=== PATIENT | male | born 1935 | race Caucasian/White ===

== ENCOUNTER 2016-12-30 11:50 | Outpatient (CLI) | payer MEDICARE, OTHER ==
[2016-12-30 13:01] LABS: #Basophils 0.1 thou/uL (0.0-0.2); #Eosinphils 0.2 thou/uL (0.0-0.7); #Lymphocytes 1.1 thou/uL (1.20-3.40); #Monocytes 0.5 thou/uL (0.11-0.59); #Neutrophils 4.6 thou/uL (1.40-6.50); %Lymphocytes 17.5 % (21.0-51.0); %Monocytes 7.4 % (0.0-10.0); Mean Platelet Volume 9.8 fL (7.4-10.4); Red Blood Cell (RBC) Count 4.52 mill/uL (4.70-6.10); White Blood Cell (WBC) Count 6.5 thou/uL (4.8-10.8)
[2016-12-30 13:18] LABS: ALT (SGPT) 18 U/L (0-55); AST (SGOT) 24 U/L (5-34); Alkaline Phosphatase 129 U/L (40-150); Anion Gap 17 mmol/L (10-20); BUN (Urea Nitrogen) 36 mg/dL (8.4-25.7); Bilirubin, Direct 0.2 mg/dL (0.1-0.3); Bilirubin, Total 0.5 mg/dL (0.2-1.2); Calc. Creatinine Clearance 0 mL/min (70-130); Calcium 9.3 mg/dL (7.8-10.44); Carbon Dioxide 23 mmol/L (23-31); Chloride 106 mmol/L (98-107); Estimated GFR-MDRD 36; LDL Cholesterol, Calculated 84 mg/dL; Protein, Total 6.9 g/dL (5.8-8.1)
[2016-12-30 13:22] LABS: Hemoglobin A1c 6.2 % (4.0-6.0)
== END 2016-12-30 11:51 | disposition home or self-care (01) ==
LOC: NAVSJIPCSP 11:50
PROVIDERS: ATTEND Family Medicine
DX: E11.9 Type 2 diabetes mellitus without complications (principal); I10 Essential (primary) hypertension; E78.00 Pure hypercholesterolemia, unspecified; I25.10 Atherosclerotic heart disease of native coronary artery without angina pectoris; E03.9 Hypothyroidism, unspecified; G25.81 Restless legs syndrome; G25.3 Myoclonus; M10.9 Gout, unspecified; Z79.899 Other long term (current) drug therapy
CPT/HCPCS: 36415; 80048; 80061; 80076; 83036; 84443; 85025

== ENCOUNTER 2017-05-04 08:59 | Outpatient (CLI) | payer MEDICARE, OTHER ==
[2017-05-04 12:48] LABS: #Basophils 0.1 thou/uL (0.0-0.2); #Eosinphils 0.2 thou/uL (0.0-0.7); #Lymphocytes 1.3 thou/uL (1.20-3.40); #Monocytes 0.5 thou/uL (0.11-0.59); #Neutrophils 4.3 thou/uL (1.40-6.50); %Basophils 0.9 % (0.0-1.0); %Eosinophils 2.8 % (0.0-10.0); %Lymphocytes 20.7 % (21.0-51.0); %Monocytes 7.6 % (0.0-10.0); Hemoglobin 12.7 g/dL (14.0-18.0); Mean Corpuscular HGB CONC 31.2 g/dL (32.0-36.0); Mean Corpuscular Hemoglobin 29.8 pg (27.0-31.0); Mean Corpuscular Volume 95.5 fl (80.0-94.0); Mean Platelet Volume 9.3 fL (7.4-10.4); Platelet Count 131 thou/uL (130-400); RBC Distribution Width 14.4 % (11.5-14.5); Red Blood Cell (RBC) Count 4.24 mill/uL (4.70-6.10); White Blood Cell (WBC) Count 6.4 thou/uL (4.8-10.8)
[2017-05-04 12:51] LABS: ALT (SGPT) 12 U/L (8-55); AST (SGOT) 18 U/L (5-34); Albumin 4.3 g/dL (3.4-4.8); Alkaline Phosphatase 118 U/L (40-150); Anion Gap 18 mmol/L (10-20); BUN (Urea Nitrogen) 33 mg/dL (8.4-25.7); Bilirubin, Direct 0.2 mg/dL (0.1-0.3); Bilirubin, Total 0.6 mg/dL (0.2-1.2); Calc. Creatinine Clearance 0 mL/min (70-130); Calcium 9.1 mg/dL (7.8-10.44); Carbon Dioxide 23 mmol/L (23-31); Cardiac Risk 4.6 (Less than 4.5); Chloride 105 mmol/L (98-107); Cholesterol 143 mg/dl (< 200 Desired); Estimated GFR-MDRD 40; Glucose 104 mg/dL (83-110); HDL Cholesterol 31 mg/dL (>60 Neg Risk); LDL Cholesterol, Calculated 83 mg/dL; Potassium 4.4 mmol/L (3.5-5.1); Protein, Total 6.7 g/dL (5.8-8.1); Sodium 142 mmol/L (136-145); Triglycerides 145 mg/dL (Less than 150)
== END 2017-05-04 09:00 | disposition home or self-care (01) ==
LOC: NAVSJIPCSP 08:59
PROVIDERS: ATTEND Family Medicine
DX: E78.00 Pure hypercholesterolemia, unspecified (principal); I10 Essential (primary) hypertension; E11.9 Type 2 diabetes mellitus without complications; I25.10 Atherosclerotic heart disease of native coronary artery without angina pectoris; E03.9 Hypothyroidism, unspecified; G25.81 Restless legs syndrome; G25.3 Myoclonus; M10.9 Gout, unspecified; Z79.899 Other long term (current) drug therapy
CPT/HCPCS: 36415; 80048; 80061; 80076; 83036; 84443; 85025

== ENCOUNTER 2019-06-13 10:12 | Emergency (ER) | payer MEDICARE, OTHER ==
[2019-06-13 11:24] LABS: #Basophils 0.1 thou/uL (0.0-0.2); #Lymphocytes 1.2 thou/uL (1.20-3.40); #Monocytes 0.6 thou/uL (0.11-0.59); %Basophils 0.9 % (0.0-1.0); %Eosinophils 0.2 % (0.0-10.0); %Lymphocytes 8.8 % (21.0-51.0); %Monocytes 4.1 % (0.0-10.0); Hemoglobin 8.9 g/dL (14.0-18.0); Mean Corpuscular HGB CONC 30.8 g/dL (32.0-36.0); Mean Corpuscular Hemoglobin 27.5 pg (27.0-31.0); Mean Corpuscular Volume 89.3 fL (78.0-98.0); Mean Platelet Volume 8.1 fL (7.4-10.4); Platelet Count 198 thou/uL (130-400); RBC Distribution Width 15.7 % (11.5-14.5); Red Blood Cell (RBC) Count 3.25 mill/uL (4.70-6.10); White Blood Cell (WBC) Count 13.9 thou/uL (4.8-10.8)
[2019-06-13 11:28] LABS: Bilirubin Negative (Negative); Blood, Urine Negative (Negative); Clarity Clear (Clear); Glucose, Urine (Dipstick) Negative (Negative); Leukocyte Negative (Negative); Nitrite Negative (Negative); Protein, Urine (Dipstick) Negative (Neg-Trace)
[2019-06-13 11:30] LABS: ALT (SGPT) 10 U/L (8-55); AST (SGOT) 18 U/L (5-34); Albumin 3.6 g/dL (3.4-4.8); Alkaline Phosphatase 126 U/L (40-150); Anion Gap 16 mmol/L (10-20); BUN (Urea Nitrogen) 48 mg/dL (8.4-25.7); Bilirubin, Total 0.7 mg/dL (0.2-1.2); Calc. Creatinine Clearance 0 mL/min (70-130); Calcium 9.2 mg/dL (7.8-10.44); Carbon Dioxide 23 mmol/L (23-31); Chloride 100 mmol/L (98-107); Estimated GFR-MDRD 22; Globulin 2.9 g/dL (2.4-3.5); Glucose 155 mg/dL (83-110); Potassium 4.8 mmol/L (3.5-5.1); Protein, Total 6.5 g/dL (5.8-8.1); Sodium 134 mmol/L (136-145)
[2019-06-13] MEDS ORDERED: Sodium Chloride 0.9% 500 ML ONE (11:41)
[2019-06-13] MEDS ORDERED: Sodium Chloride 0.9% 100 ML ONE ×2 (11:41→11:42)
[2019-06-13] MEDS ORDERED: cefTRIAXone\\ROCEPHIN 1 GM VIAL ONE (11:41)
[2019-06-13] MEDS ORDERED: Piperacillin/Tazobactam 3.375 GM VIAL ONE (11:42)
--- NOTE | 2019-06-13 12:23 | ULT ---
EXAM: RIGHT LOWER EXTREMITY DOPPLER VENOUS ULTRASOUND PROVIDED CLINICAL HISTORY: History of right greater saphenous vein harvesting with redness and swelling in the right lower extre mity TECHNIQUE: Grayscale and color Doppler sonography with spectral analysis was performed of the right common femor al, femoral, popliteal, posterior tibial, greater saphenous and profunda femoral veins. FINDINGS: There is normal compression, flow and augmentation seen within the deep venous structures o f the right lower extremity. Small amount of thrombus is seen within the proximal right greater saphenous vein just distal to the greater saphenous vein femoral vein junction. There is a 3.5 x 2.9 cm nonvascular collection within the subcutaneous tissues of the distal medial thigh. IMPRESSION: No sonographic evidence for right lower extremity deep venous thrombosis. Small amount of thrombus seen within the proximal greater saphenous vein just distal to the greater s aphenous vein, femoral junction. 3.5 x 2.9 cm fluid collection within the subcutaneous tissues of the medial distal right thigh. Findi ngs may reflect hematoma or abscess. Custodial Supervisor contacted Dr. Matute concerning the findings at the time of the study.
== END 2019-06-13 12:35 | disposition short-term general hospital (02) ==
LOC: NAV ERS 10:12
DX: L03.115 Cellulitis of right lower limb (principal); I12.0 Hypertensive chronic kidney disease with stage 5 chronic kidney disease or end stage renal disease; N18.6 End stage renal disease; D64.9 Anemia, unspecified; E11.22 Type 2 diabetes mellitus with diabetic chronic kidney disease; I95.9 Hypotension, unspecified; D72.829 Elevated white blood cell count, unspecified; E03.9 Hypothyroidism, unspecified; Z87.891 Personal history of nicotine dependence; Z79.899 Other long term (current) drug therapy
CPT/HCPCS: 80053; 81003; 83605; 85025; 87040; 87086; 96365; 96375; J0696; J2543; J3490; J7050

== ENCOUNTER 2020-04-30 08:32 | Emergency (ER) | payer MEDICARE, OTHER ==
[2020-04-30] MEDS ORDERED: HYDROcodone/Acetaminophen 5/325 mg Tablet ONE (10:38)
[2020-04-30] MEDS ORDERED: Morphine 2 MG/ML SYRINGE ONE (11:01)
--- NOTE | 2020-04-30 12:06 | CT ---
CT CERVICAL SPINE: Date: 04/30/2020 Axial tomograms obtained with multiplanar reconstruction without contrast. INDICATION: Neck pain. FINDINGS: There are moderately severe degenerative changes of the cervical spine. Degenerative disc changes see n at all levels with vacuum phenomenon at several levels. Loss of disc space is most pronounced at th e C4-5, C5-6, and C6-7 levels. There is mild anterior wedging at C5 and C6 which is chronic. Prominen t anterior osteophytes at these levels with large bridging osteophytes anteriorly at C5-6 and C6-7. There is an anterolisthesis at C4 on C5 measured at approximately 4.0 mm. There is a mild anterolisth esis at C5-6 measured at approximately 3.0 mm. No evidence of acute fracture. Prominent facet hypertrophy at all levels. At C3-4, there is bilateral foraminal stenosis, more severe on the right due to facet and uncinate hy pertrophy. Mild effacement of the anterior subarachnoid space. C4-5: Effacement of the anterior subarachnoid space. Bilateral foraminal stenosis. C5-6: Bilateral foraminal stenosis. Effacement of the anterior subarachnoid space due to spondylosis . C6-7: Posterior spondylosis abuts the anterior cord. Bilateral foraminal stenosis. IMPRESSION: Prominent degenerative changes of the cervical spine. Anterolisthesis at C4-5 with degenerative disc changes at multiple levels as described. Foraminal stenosis at multiple levels as described above. POS: CAROLANN
== END 2020-04-30 11:26 | disposition home or self-care (01) ==
LOC: NAV ERS 08:32
DX: M47.812 Spondylosis without myelopathy or radiculopathy, cervical region (principal); E11.22 Type 2 diabetes mellitus with diabetic chronic kidney disease; E11.51 Type 2 diabetes mellitus with diabetic peripheral angiopathy without gangrene; N18.6 End stage renal disease; I12.0 Hypertensive chronic kidney disease with stage 5 chronic kidney disease or end stage renal disease; I25.10 Atherosclerotic heart disease of native coronary artery without angina pectoris; E78.5 Hyperlipidemia, unspecified; E78.00 Pure hypercholesterolemia, unspecified; M10.9 Gout, unspecified; E03.9 Hypothyroidism, unspecified; Z79.899 Other long term (current) drug therapy; I25.2 Old myocardial infarction; Z79.4 Long term (current) use of insulin; Z79.82 Long term (current) use of aspirin; Z79.52 Long term (current) use of systemic steroids; G25.81 Restless legs syndrome
CPT/HCPCS: 72125; 96372; J2270

== ENCOUNTER 2020-05-07 16:10 | Inpatient (IN) | payer MEDICARE, OTHER ==
[2020-05-07] MEDS ORDERED: Nitroglycerin 0.4 MG TAB (25 Tab Bottle) SL PRN (17:52)
[2020-05-07] MEDS ORDERED: Triamcinolone 0.1% Cream 15 GM TUBE TOP PRN (17:52)
[2020-05-07] MEDS ORDERED: traMADol HCl 50 MG TAB PO PRN (17:52)
[2020-05-07] MEDS ORDERED: Bisacodyl 5 MG TAB PO PRN (18:08)
[2020-05-07] MEDS ORDERED: Senokot S 8.6-50 MG TAB PO PRN (18:08)
[2020-05-07] MEDS ORDERED: Dextrose 50% Abboject 50 ML SYRINGE SLOW IVP PRN (18:08)
[2020-05-07] MEDS ORDERED: Ondansetron ODT 4 MG TAB PO PRN (18:08)
[2020-05-07] MEDS ORDERED: Loperamide HCl 2 MG CAP PO PRN ×2 (18:08)
[2020-05-07] MEDS ORDERED: CEFTAROLINE 600 MG IVPB SCH (21:00)
[2020-05-07] MEDS: Aspirin 81 mg Enteric Coated Tablet PO SCH (21:27)
[2020-05-07] MEDS: HumaLOG 300 UNITS/3 ML VIAL SC PRN (21:27)
[2020-05-07] MEDS: Pramipexole Di-HCl 1 MG TAB PO SCH (21:48)
[2020-05-07] MEDS: Ceftaroline 600 MG in Sodium Chloride 0.9% 100 ML IVPB SCH (21:58)
[2020-05-07] MEDS: Vancomycin HCl 750 MG in Sodium Chloride 0.9% 250 ML 250 ML IVPB SCH (23:09)
[2020-05-08] MEDS: Vancomycin HCl 500 MG in Sodium Chloride 0.9% 100 ML IVPB SCH ×2 (00:17→23:36)
[2020-05-08] MEDS: Levothyroxine Sodium 75 MCG TAB PO SCH (05:24)
[2020-05-08 06:00] LABS: #Lymphocytes 0.5 thou/uL (1.20-3.40); #Monocytes 0.2 thou/uL (0.11-0.59); #Neutrophils 5.9 thou/uL (1.40-6.50); %Basophils 0.5 % (0.0-1.0); %Eosinophils 0.1 % (0.0-10.0); %Lymphocytes 7.9 % (21.0-51.0); %Monocytes 2.6 % (0.0-10.0); %Neutrophils 88.9 % (42.0-75.0); Hemoglobin 8.2 g/dL (14.0-18.0); Large Platelets SLIGHT; MDiff Complete? YES; Mean Corpuscular HGB CONC 30.2 g/dL (32.0-36.0); Mean Corpuscular Hemoglobin 25.9 pg (27.0-31.0); Mean Corpuscular Volume 85.8 fL (78.0-98.0); Mean Platelet Volume 11.8 fL (7.4-10.4); Microcytosis SLIGHT = 6-15 cells (100X) (0-5/hpf); Ovalocytes SLIGHT = 2-5 cells (100X) (0-1/hpf); Platelet Count 112 thou/uL (130-400); Platelet Morphology Comment Appears Decreased; Polychromasia MODERATE = 3-4 cells (100X) (0-2/hpf); RBC Distribution Width 18.7 % (11.5-14.5); Red Blood Cell (RBC) Count 3.17 mill/uL (4.70-6.10); White Blood Cell (WBC) Count 6.7 thou/uL (4.8-10.8)
[2020-05-08 06:01] LABS: ALT (SGPT) 21 U/L (8-55); AST (SGOT) 34 U/L (5-34); Albumin 2.2 g/dL (3.4-4.8); Alkaline Phosphatase 146 U/L (40-110); Anion Gap 12 mmol/L (10-20); BUN (Urea Nitrogen) 41 mg/dL (8.4-25.7); Bilirubin, Total 0.6 mg/dL (0.2-1.2); Calc. Creatinine Clearance 48 mL/min (70-130); Carbon Dioxide 22 mmol/L (23-31); Chloride 105 mmol/L (98-107); Estimated GFR-MDRD 44; Globulin 2.8 g/dL (2.4-3.5); Glucose 109 mg/dL (83-110); Potassium 3.8 mmol/L (3.5-5.1); Sodium 135 mmol/L (136-145)
--- NOTE | 2020-05-08 07:39 | HP ---
HISTORY OF PRESENT ILLNESS: Mr. Ramirez is a well-developed, well-nourished, very pleasant 85-year-old white male, who has been a patient of mine for 30+ years. Unfortunately, he has a recent medical history of melanoma, hypertension, hyperlipidemia, and diabetes type 2. He presented to the emergency room at [facility] with severe neck pain just below the base of the skull, mainly on the left side. This started the previous Tuesday, was going on for about 5 days. He was evaluated, given a shot of morphine and some Tylenol No.3's and was sent home. The next day, it became even worse and he told the EMS that the morphine did not help and the Tylenol No.3 did not help. He was unable to move very well because of intense pain and he called EMS, was transported to [facility] in [place]. There, he had a CT angiogram, which revealed mildly dilated thoracic aorta and noted to have spinal cord compression from C2 from anterior epidural abscess that went all way down to C3 and up to the base of the skull. He was started on vancomycin and cefepime and admitted to the hospital, seen by Dr. Day, by Dr. Arguello, and the [facility] residents. Eventually, he is stabilized and now is transferred here for a full 6 weeks which end on June 26 of vancomycin and ceftaroline [address] every [address] Day requested a weekly CBC, C-reactive protein, comp met, and vancomycin trough level. He is also requested to see Dr. Day in 3 to 4 weeks. PAST MEDICAL HISTORY: 1. Mr. Ramirez reveals he has diabetes type 2. 2. Thyroid dysfunction. 3. Coronary artery disease with an DC in 2002. 4. Recent melanoma. 5. Diabetic neuropathy. 6. 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 7. Bradycardia. 8. Hypertension. 9. 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 10. Stage 3 chronic kidney disease. 11. Long-term use of insulin. 12. 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 13. Melanoma of the right thigh. 14. Sepsis with MRSA. 15. Thrombocytopenia. 16. Elevated troponin. 17. Recent pacemaker approximately 3 weeks ago. 18. Pain management. 19. Generalized weakness. PAST SURGICAL HISTORY: 1. In 1951, tonsillectomy. 2. Vasectomy. 3. In 1969, gastrectomy. 4. In 1969, hemorrhoidectomy. 5. In 1977, herniorrhaphy. 6. Knee arthroscopy. 7. Colonoscopy and panendoscopy with removal of a large villous adenoma with severe dysplasia in 2001 and 2002. 8. In 2002, stent placement by Dr. Amilcar Downs. 9. In 2008, right cataract surgery by Dr. Gasca. 10. In 2008, left cataract surgery by Dr. Gasca. 11. In 2010, right herniorrhaphy. 12. In 2010, RCA stent by Dr. Gorman. 13. In 2016, left foot surgery with pinning of the second and third toes by Dr. Arredondo. 14. In August 2016, cardiac cath with stenting by Dr. Gorman. 15. In March 2019, coronary artery bypass graft x3 by Dr. Emerson Beatty. 16. On October 17, 2019, melanoma excision of the right thigh. 17. In March 2020, pacemaker placement by Dr. Antonio Gorman. FAMILY HISTORY: Reveals the patient's father at age 93. The patient's mother at age 37 from tuberculosis. The patient's older sister is 89, has rheumatoid arthritis. The patient's second sister is 87, has diabetes and thyroid issues. The patient has one son and two daughters, who are healthy. SOCIAL HISTORY: 1. Reveals the patient stopped smoking in 1972 and 2 pack per day history of smoking for many years. 2. The patient rarely has any alcohol. 3. The patient denies drugs. 4. The patient lives with his spouse. 5. The patient is retired from the [employer] and also retired from [employer]. 6. The patient has no travel outside the [place] recently. ALLERGIES: REVEALS THE PATIENT IS ALLERGIC TO CIPRO, WHICH CAUSES ITCHING. PRESENT MEDICATIONS: Revealed the patient is presently on the followin. Tylenol 650 mg q.4 hours p.r.n. headache, fever, pain. 2. Allopurinol 100 mg daily. 3. Alogliptin 25 mg daily. 4. Ecotrin 81 mg daily. 5. Atorvastatin 40 mg daily. 6. Dulcolax 10 mg p.o. p.r.n. 7. Rocaltrol 0.25 mcg daily. 8. Ceftaroline fosamil 400 mg b.i.d. IV piggyback, which is an antibiotic. 9. Vancomycin 1 g IV q.24 hours, which is an antibiotic. 10. Plavix 75 mg daily. 11. Lasix 40 mg daily. 12. Lantus 14 units subcu each morning. 13. Lispro Humalog mild sliding scale before each meal. 14. Theragran-M multivitamin daily. 15. Levothyroxine 75 mcg daily. 16. Nitrostat 0.4 mg sublingual q.5 minutes p.r.n. chest pain. 17. Zofran 4mg p.r.n. nausea and vomiting. 18. Potassium chloride 10 mEq daily. 19. Mirapex 1 mg p.o. b.i.d. 20. Prednisone 20 mg daily. 21. Senokot-S two tablets p.o. b.i.d. p.r.n. constipation. 22. Sodium chloride flush q.12 hours and p.r.n. 23. Spironolactone 25 mg daily. 24. Ultram 100 mg q.4 hours p.r.n. pain 4 to 6. 25. Kenalog topically q.p.m. p.r.n. itching. REVIEW OF SYSTEMS: The patient states he feels poorly and very weak, but is not having fever, chills, or night sweats at this time. The patient has lost some weight recently because he has been in the hospital. His appetite has been poor, even though he has been on prednisone 20 mg daily. Ophthalmologically, the patient denies any change in his vision. ENT: The patient denies any ear pain, change in hearing, nasal congestion, or rhinorrhea. CARDIOVASCULAR: The patient denies chest pain, palpitations, irregular heartbeat, shortness of breath, or orthopnea. PULMONARY: The patient denies shortness of breath, dyspnea on exertion, cough, hemoptysis, or wheezing. GASTROINTESTINAL: The patient denies nausea, vomiting, diarrhea, constipation, dysphagia, heartburn, or indigestion. MUSCULOSKELETAL: The patient states his neck pain is much improved and he has pain in his infected right toe. NEUROLOGIC: The patient denies seizures or headache, but does admit to right leg numbness and weakness, which started when he was admitted to the hospital. PSYCHIATRIC: The patient has been somewhat depressed because he has been so ill and unable to get better. ENDOCRINE: The patient denies polyuria, polydipsia, or polyphagia. PHYSICAL EXAMINATION: GENERAL: This is a well-developed, well-nourished, very pleasant 85-year-old white male, who is concerned because he has been so sick and thought when he went to [facility], he was dying. HEENT: Reveals normocephalic and nontraumatic cranium. Pupils equally round and reactive. Extraocular movements intact. Nose and throat are slightly dry. NECK: Supple without masses, nodes, or bruits. CHEST: Clear to auscultation. No rales. No rhonchi. No wheezes are heard. Pacemaker in left upper chest wall, continues to have some bruising of the ribs on that side. HEART: Reveals a regular rate and rhythm. No murmurs, gallops, or rubs are noted. RESPIRATORY: Reveals no cough, cold, congestion, rales, or rhonchi. GI: Reveals normal bowel sounds in all 4 quadrants. No rebound or guarding is noted. No masses are noted. EXTREMITIES: Reveal 1 to 2+ edema bilaterally. There is infected epidural abscess, most likely from the patient's right first metatarsal infection. ASSESSMENT: 1. Sepsis secondary to epidural abscess. 2. 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 Chun. 3. 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 4. Pacemaker followed by Dr. Ritchie and Dr. Gorman. 5. Hypertension. 6. Hyperlipidemia. 7. Diabetes type 2, presently stable, but has been uncontrolled. 8. Melanoma followed by Dr. Bright presently. 9. Idiopathic hepatitis secondary to melanoma medication, presently weaned from 80 mg daily down to [address] Gorman. 10. Hypothyroidism. 11. Pacemaker. 12. Thrombocytopenia. 13. Elevated troponin. 14. Pain management. 15. Generalized weakness. PLAN: 1. The patient will continue the same medications that he presently is on. 2. The patient will continue ceftaroline 400 mg until June 26. 3. The patient will continue vancomycin 1 g daily until June 26. 4. The patient will follow up with Dr. Day in 3 to 4 weeks, which should be basically around May 28. 5. The patient will have a CBC, comprehensive metabolic panel, C-reactive protein, and vancomycin level, and a pre-albumin weekly, which will be sent to Dr. Day. 6. The patient will continue to have a right-sided PICC line for his prolonged antibiotics. 7. Continue to monitor the patient's blood counts for thrombocytopenia and anemia. 8. Continue to monitor the patient's troponin if he develops chest pain. 9. Continue the patient's present medications. 10. Stress ulcer prophylaxis. 11. Decubitus precautions. 12. DVT prophylaxis per Primary Service. 13. Physical therapy and occupational therapy. Job ID: [id number] [facility]
[2020-05-08] MEDS: Alogliptin 25 MG TAB PO SCH (08:39)
[2020-05-08] MEDS: Calcitriol 0.25 MCG CAP PO SCH (08:40)
[2020-05-08] MEDS: Atorvastatin Calcium 20 MG TAB PO SCH (08:40)
[2020-05-08] MEDS: Allopurinol 100 MG TAB PO SCH (08:40)
[2020-05-08] MEDS: Clopidogrel Bisulfate 75 MG TAB PO SCH (08:41)
[2020-05-08] MEDS: Ceftaroline 600 MG in Sodium Chloride 0.9% 100 ML IVPB SCH ×2 (08:41→09:04)
[2020-05-08] MEDS: Multivitamin W/ Minerals 1 TAB PO SCH (08:42)
[2020-05-08] MEDS: Lantus 1000 UNITS/10 ML VIAL SC SCH (08:42)
[2020-05-08] MEDS: Furosemide 40 MG TAB PO SCH (08:42)
[2020-05-08] MEDS: Spironolactone 25 MG TAB PO SCH (08:43)
[2020-05-08] MEDS: Potassium Chloride 10 MEQ TAB PO SCH (08:43)
[2020-05-08] MEDS: Pramipexole Di-HCl 1 MG TAB PO SCH (08:43)
[2020-05-08] MEDS: predniSONE 20 MG TAB PO SCH (08:43)
[2020-05-08] MEDS: Pramipexole Di-HCl 0.25 MG TAB PO SCH ×2 (10:05→21:24)
[2020-05-08] MEDS: HumaLOG 300 UNITS/3 ML VIAL SC PRN (16:42)
--- NOTE | 2020-05-08 21:19 | PRG ---
DATE OF SERVICE: 05/08/2020 SUBJECTIVE: Mr. Ramirez is a very pleasant 85-year-old white male. He presented to the emergency room at [facility] with very severe neck pain just below the base of the skull, mainly on the left side. Taken to the hospital previously and for his neck pain, was given a shot of morphine and some Tylenol No.3. He was sent home and it did not get any better. He told the EMS that the morphine did not help at all and he was re-evaluated and found to have a spinal cord compression from C2 secondary to an anterior epidural abscess that it went down to C2 and all the way up to the base of the skull. He is admitted to [facility] in [place]. He was seen in consultation by Dr. Day and Dr. Arguello and started on vancomycin and cefepime. He eventually is evaluated and stabilized and now has been transferred to [facility] for full 6 weeks of vancomycin and ceftaroline. Dr. Day recommended a weekly CBCs, C-reactive protein, comp met, and vancomycin trough level. The patient states he did well today and walked 230 feet with rolling walker, but he says it was a stretch. His blood work is actually doing fairly well except his creatinine is 1.53. His anemia reveals hemoglobin 8.2 and hematocrit 27.2. PHYSICAL EXAMINATION: GENERAL: This is a well-developed, well-nourished white male, in no apparent distress at this time. VITAL SIGNS: This morning blood pressure was 156/72, pulse 83, respirations 18, and O2 saturation 92% to 93% on room air or 1.5 L. HEENT: Normocephalic and nontraumatic cranium. The pupils are equally round and reactive. Extraocular movements are intact. Nose and throat are slightly dry. NECK: Supple without masses, nodes, or bruits. CHEST: Clear to auscultation. HEART: Reveals a regular rate and rhythm without murmurs, gallops, or rubs. ABDOMEN: Obese, soft, and nontender without organomegaly. Normal bowel sounds are noted. No rebound or guarding is noted. GENITOURINARY: Deferred. EXTREMITIES: Reveal no clubbing or cyanosis. The patient has 1 to 2+ edema bilaterally. SKIN: Cervical neck reveals a posterior epidural abscess. The patient has a right first metatarsal infection. ASSESSMENT: 1. Sepsis secondary to epidural abscess. 2. 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 Chun. 3. 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 4. Pacemaker followed by Dr. Carey and Dr. Gorman. 5. Hypertension. 6. Diabetes type 2. 7. Hyperlipidemia. 8. 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 Bright. 9. Melanoma followed by Dr. Bright. 10. Hypothyroidism. 11. Pacemaker. 12. Thrombocytopenia. 13. Elevated troponin. 14. Pain management. 15. Generalized weakness. PLAN: 1. The patient will continue vancomycin 1 g daily until June 26. 2. The patient will continue ceftaroline 400 mg b.i.d. until June 26. 3. Continue the other medications as needed. 4. Follow up with Dr. Day in 3 to 4 weeks, which should be around May 28. 5. Continue CBC, comp met, C-reactive protein, vancomycin level, and pre-albumin weekly, which will need to be sent to Dr. Day. 6. Continue to monitor the patient's blood counts for thrombocytopenia and anemia. Continue the patient's troponin. If he develops chest pain, continue the patient's present medications. 7. Stress ulcer prophylaxis. 8. Decubitus precautions. 9. DVT prophylaxis. 10. PT and OT. Job ID: [id number]
[2020-05-08] MEDS: Aspirin 81 mg Enteric Coated Tablet PO SCH (21:24)
[2020-05-08] MEDS: Vancomycin HCl 750 MG in Sodium Chloride 0.9% 250 ML 250 ML IVPB SCH (22:27)
[2020-05-09] MEDS: Levothyroxine Sodium 75 MCG TAB PO SCH (05:13)
[2020-05-09] MEDS ORDERED: Calcium Carbonate 500 MG ChewTAB PO PRN (06:51)
[2020-05-09] MEDS: Pramipexole Di-HCl 0.25 MG TAB PO SCH ×2 (08:18→21:03)
[2020-05-09] MEDS: Allopurinol 100 MG TAB PO SCH (08:19)
[2020-05-09] MEDS: Alogliptin 25 MG TAB PO SCH (08:19)
[2020-05-09] MEDS: Famotidine 20 MG TAB PO SCH (08:19)
[2020-05-09] MEDS: predniSONE 20 MG TAB PO SCH (08:20)
[2020-05-09] MEDS: Clopidogrel Bisulfate 75 MG TAB PO SCH (08:20)
[2020-05-09] MEDS: Potassium Chloride 10 MEQ TAB PO SCH (08:20)
[2020-05-09] MEDS: Calcitriol 0.25 MCG CAP PO SCH (08:20)
[2020-05-09] MEDS: Atorvastatin Calcium 20 MG TAB PO SCH (08:20)
[2020-05-09] MEDS: Furosemide 40 MG TAB PO SCH (08:20)
[2020-05-09] MEDS: Spironolactone 25 MG TAB PO SCH (08:20)
[2020-05-09] MEDS: Multivitamin W/ Minerals 1 TAB PO SCH (08:21)
[2020-05-09] MEDS: Lantus 1000 UNITS/10 ML VIAL SC SCH (08:23)
--- NOTE | 2020-05-09 08:44 | PRG ---
DATE OF SERVICE: 05/09/2020 SUBJECTIVE: Mr. Ramirez is a very pleasant 85-year-old white male, who developed very severe neck pain and presented to the emergency room. He was given a shot of morphine, some Tylenol No.3 and sent home. The pain got significantly worse and he was unable to move and so he called EMS and was brought to [facility]. CT scan revealed spinal cord compression from the base of his neck down to C3. He was found to have an epidural abscess. He was admitted to [facility], was seen in consultation by Dr. Day and Dr. Arguello and Dr. Amaro. He was not deemed an operable patient, started on IV antibiotics, stabilized and now has been transferred to [facility] for a full 6 weeks of vancomycin and ceftaroline. Dr. Day recommended weekly CBC, C-reactive protein, comprehensive metabolic panel, and vancomycin trough level. The patient states he had a good night last night except he had some GERD reflux. They gave him some crackers, which made things little bit better. We did discuss putting him on some Pepcid b.i.d. and some Tums p.r.n. PHYSICAL EXAMINATION: VITAL SIGNS: This morning reveal blood pressure was normal, pulse 77 to 91, respirations 20, O2 saturation 93% on room air, and T-max 96.7. GENERAL: This is a well-developed, well-nourished, white male, in no apparent distress at this time. HEENT: Reveals normocephalic and nontraumatic cranium. Pupils are equal, round , and reactive. Extraocular movements are intact. Nose and throat are slightly dry. NECK: Supple without masses, nodes, or bruits. CHEST: Clear to auscultation. HEART: Reveals a regular rate and rhythm without murmurs, gallops, or rubs. ABDOMEN: Obese, soft, nontender without organomegaly. Normal bowel sounds are noted in all 4 quadrants. No rebound or guarding is noted. GENITOURINARY: Deferred. EXTREMITIES: Reveal no clubbing, cyanosis, or edema. The patient continues to have 1 to 2+ edema, that is his baseline. MUSCULOSKELETAL: Cervical/neck reveals no significant tenderness, but he did ask to put his C-collar on this morning because it is a little bit sore. SKIN: He also was noted to have a first metatarsophalangeal joint ulceration, which is chronic. LABORATORY DATA: No labs were done today except for his Accu-Cheks. Accu-Chek this morning was 110. ASSESSMENT: 1. Sepsis secondary to epidural abscess. 2. Epidural abscess, followed by Dr. Day and Dr. Amaro, on IV antibiotics. 3. 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 Chun. 4. Pacemaker, followed by Dr. Carey and Dr. Gorman. 5. Diabetes, type 2. 6. Hypertension. 7. Hyperlipidemia. 8. 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 Bright. 9. Melanoma, followed by Dr. Bright. 10. Hypothyroidism. 11. Pacemaker. 12. Thrombocytopenia. 13. Elevated troponin in the recent past. 14. Pain management. 15. Generalized weakness. PLAN: 1. The patient will continue vancomycin 1 g daily until June 26. 2. The patient will continue ceftaroline 400 mg b.i.d. until June 26. 3. Follow up with Dr. Day in 2 to 3 weeks, should be around May 28. 4. Continue CBC, comp-met, C-reactive protein, vancomycin, and pre-albumin every week and send to Dr. Day. 5. Continue to monitor the patient's blood counts for thrombocytopenia and anemia. 6. Continue to monitor the patient's troponin if he develops any chest pain. 7. Stress ulcer prophylaxis. 8. Decubitus precautions. 9. DVT prophylaxis. 10. Physical therapy and occupational therapy. Job ID: [id number] [facility]
[2020-05-09] MEDS: HumaLOG 300 UNITS/3 ML VIAL SC PRN (18:09)
[2020-05-09] MEDS: Aspirin 81 mg Enteric Coated Tablet PO SCH (21:03)
[2020-05-09] MEDS: Vancomycin HCl 750 MG in Sodium Chloride 0.9% 250 ML 250 ML IVPB SCH (22:22)
[2020-05-09] MEDS: Vancomycin HCl 500 MG in Sodium Chloride 0.9% 100 ML IVPB SCH (23:27)
[2020-05-10] MEDS: Levothyroxine Sodium 75 MCG TAB PO SCH (05:43)
[2020-05-10] MEDS: Clopidogrel Bisulfate 75 MG TAB PO SCH (10:01)
[2020-05-10] MEDS: Alogliptin 25 MG TAB PO SCH (10:01)
[2020-05-10] MEDS: Atorvastatin Calcium 20 MG TAB PO SCH (10:01)
[2020-05-10] MEDS: Allopurinol 100 MG TAB PO SCH (10:01)
[2020-05-10] MEDS: Pramipexole Di-HCl 0.25 MG TAB PO SCH ×2 (10:02→21:40)
[2020-05-10] MEDS: Famotidine 20 MG TAB PO SCH (10:02)
[2020-05-10] MEDS: Furosemide 40 MG TAB PO SCH (10:02)
[2020-05-10] MEDS: Potassium Chloride 10 MEQ TAB PO SCH (10:02)
[2020-05-10] MEDS: Calcitriol 0.25 MCG CAP PO SCH (10:02)
[2020-05-10] MEDS: Multivitamin W/ Minerals 1 TAB PO SCH (10:02)
[2020-05-10] MEDS: Spironolactone 25 MG TAB PO SCH (10:03)
[2020-05-10] MEDS: Acetaminophen 325 MG TAB PO PRN (10:03)
[2020-05-10] MEDS: predniSONE 20 MG TAB PO SCH (10:03)
[2020-05-10] MEDS: Lantus 1000 UNITS/10 ML VIAL SC SCH (10:07)
--- NOTE | 2020-05-10 16:07 | PRG ---
DATE OF SERVICE: 05/10/2020 SUBJECTIVE: Mr. Ramirez is resting in his recliner. He denies any questions or concerns. He is happy with his progress. No family at bedside. OBJECTIVE: VITAL SIGNS: He is afebrile with a T-max of , pulse is 70, respirations 22, oxygen saturation 93% on 3 L, and blood pressure is 151/68. CARDIOVASCULAR SYSTEM: S1 and S2 plus. RESPIRATORY SYSTEM: Normal vesicular breath sounds. ABDOMEN: Soft, nontender. Bowel sounds heard in all quadrants. EXTREMITIES: Without cyanosis or clubbing. He does have just DAVE hose on only the right leg. CENTRAL NERVOUS SYSTEM: Awake and responsive. Generalized weakness, otherwise nonfocal. LABORATORY DATA: Blood sugars are 108, 270, 296, 125, and 97. IMPRESSION: 1. Epidural abscesses, currently on IV antibiotics. 2. Diabetes mellitus, type 2. 3. Hypertension. 4. Dyslipidemia. 5. Hypothyroidism. 6. Deconditioning. PLAN: 1. Continue current medications including antibiotics till June 26. 2. Weekly CBC, CMP, CRP, and sedimentation rate. 3. DVT prophylaxis with PlexiPulses. 4. Decubitus precautions. 5. Stress ulcer prophylaxis. 6. 1800-calorie heart healthy ADA diet. 7. Accu-Cheks with sliding scale coverage. 8. Monitor blood pressure and adjust medications as needed. 9. Continue therapy. 10. Discussed with the patient and nursing in detail and all questions answered. Job ID: [id number]
[2020-05-10 21:23] LABS: Vancomycin, Trough 18.6 ug/mL
[2020-05-10] MEDS: Aspirin 81 mg Enteric Coated Tablet PO SCH (21:40)
[2020-05-10] MEDS: Vancomycin HCl 750 MG in Sodium Chloride 0.9% 250 ML 250 ML IVPB SCH (22:35)
[2020-05-10] MEDS: Vancomycin HCl 500 MG in Sodium Chloride 0.9% 100 ML IVPB SCH (22:35)
[2020-05-11] MEDS: Levothyroxine Sodium 75 MCG TAB PO SCH (05:27)
[2020-05-11] MEDS: Potassium Chloride 10 MEQ TAB PO SCH (09:12)
[2020-05-11] MEDS: Pramipexole Di-HCl 0.25 MG TAB PO SCH ×2 (09:12→20:11)
[2020-05-11] MEDS: Multivitamin W/ Minerals 1 TAB PO SCH (09:12)
[2020-05-11] MEDS: predniSONE 20 MG TAB PO SCH (09:13)
[2020-05-11] MEDS: Spironolactone 25 MG TAB PO SCH (09:13)
[2020-05-11] MEDS: Atorvastatin Calcium 20 MG TAB PO SCH (09:13)
[2020-05-11] MEDS: Clopidogrel Bisulfate 75 MG TAB PO SCH (09:13)
[2020-05-11] MEDS: Calcitriol 0.25 MCG CAP PO SCH (09:13)
[2020-05-11] MEDS: Alogliptin 25 MG TAB PO SCH (09:13)
[2020-05-11] MEDS: Furosemide 40 MG TAB PO SCH (09:13)
[2020-05-11] MEDS: Allopurinol 100 MG TAB PO SCH (09:13)
[2020-05-11] MEDS: Famotidine 20 MG TAB PO SCH (09:13)
[2020-05-11] MEDS: Lantus 1000 UNITS/10 ML VIAL SC SCH (09:21)
[2020-05-11] MEDS ORDERED: Bisacodyl 10 MG SUPP PR PRN (11:19)
--- NOTE | 2020-05-11 12:01 | PRG ---
DATE OF SERVICE: 05/11/2020 SUBJECTIVE: He is complaining of some constipation, otherwise denies any concerns or questions. His spouse is in the room. All questions answered. Pain is controlled. OBJECTIVE: VITAL SIGNS: He is afebrile, heart rate is 80, respirations 20, oxygen saturation 93% on 3 L, and blood pressure 112/55. CARDIOVASCULAR SYSTEM: S1 and S2 plus. RESPIRATORY SYSTEM: Normal vesicular breath sounds. ABDOMEN: Soft and nontender. Bowel sounds heard in all quadrants. EXTREMITIES: Without cyanosis or clubbing. CENTRAL NERVOUS SYSTEM: Grossly nonfocal other than generalized weakness. LABORATORY DATA: Blood sugars are 125, 97, 146, and 244. IMPRESSION: 1. Epidural abscess, on IV antibiotics. 2. Diabetes mellitus, type 2. 3. Hypertension. 4. Dyslipidemia. 5. Hypothyroidism. 6. Deconditioning. 7. Constipation. PLAN: 1. Continue current medications. 2. He does have Senokot p.r.n., advised nursing to give that to him and then we will also order Dulcolax suppository b.i.d. p.r.n. 3. Heart healthy, 1800-calorie ADA diet. 4. Accu-Cheks with sliding scale coverage. 5. Monitor blood pressure and adjust medications as needed. 6. Spinal precaution. 7. Physical therapy. 8. Routine laboratory values. 9. Dr. Edward duff. Job ID: [id number]
[2020-05-11] MEDS: HumaLOG 300 UNITS/3 ML VIAL SC PRN (17:14)
[2020-05-11] MEDS: Aspirin 81 mg Enteric Coated Tablet PO SCH (20:11)
[2020-05-11] MEDS: Acetaminophen 325 MG TAB PO PRN (20:11)
[2020-05-11] MEDS: Vancomycin HCl 750 MG in Sodium Chloride 0.9% 250 ML 250 ML IVPB SCH (21:19)
[2020-05-11] MEDS: Vancomycin HCl 500 MG in Sodium Chloride 0.9% 100 ML IVPB SCH (22:46)
[2020-05-12] MEDS: Levothyroxine Sodium 75 MCG TAB PO SCH (05:34)
[2020-05-12] MEDS: HumaLOG 300 UNITS/3 ML VIAL SC PRN ×2 (05:35→13:10)
[2020-05-12] MEDS: Pramipexole Di-HCl 0.25 MG TAB PO SCH ×2 (08:58→20:14)
[2020-05-12] MEDS: Calcitriol 0.25 MCG CAP PO SCH (08:59)
[2020-05-12] MEDS: Alogliptin 25 MG TAB PO SCH (08:59)
[2020-05-12] MEDS: Atorvastatin Calcium 20 MG TAB PO SCH (08:59)
[2020-05-12] MEDS: Furosemide 40 MG TAB PO SCH (08:59)
[2020-05-12] MEDS: Spironolactone 25 MG TAB PO SCH (08:59)
[2020-05-12] MEDS: Multivitamin W/ Minerals 1 TAB PO SCH (08:59)
[2020-05-12] MEDS: Potassium Chloride 10 MEQ TAB PO SCH (08:59)
[2020-05-12] MEDS: Famotidine 20 MG TAB PO SCH (08:59)
[2020-05-12] MEDS: Clopidogrel Bisulfate 75 MG TAB PO SCH (08:59)
[2020-05-12] MEDS: Allopurinol 100 MG TAB PO SCH (08:59)
[2020-05-12] MEDS: predniSONE 20 MG TAB PO SCH (08:59)
[2020-05-12] MEDS: Lantus 1000 UNITS/10 ML VIAL SC SCH (09:00)
[2020-05-12] MEDS ORDERED: Dextrose 50% Abboject 50 ML SYRINGE SLOW IVP PRN (09:52)
--- NOTE | 2020-05-12 13:37 | PRG ---
DATE OF SERVICE: 05/12/2020 SUBJECTIVE: Mr. Ramirez is a well-developed, well-nourished 85-year-old white male, who has developed very severe neck pain. He presented to the emergency room in [place], was given a shot of morphine and Tylenol and was sent home. His pain over the next 24 hours got significantly worse and he called the ambulance, because he is unable to move. He was brought to [facility], where CT revealed a spinal cord compression, epidural abscess. It went from the back of his neck down to C3. He was found to have an epidural abscess and was admitted to [facility]. He was seen in consultation by Dr. Day, Dr. Arguello, and Dr. Amaro. He was not thought to be operable and was started on IV antibiotics. He has now been stabilized and transferred to [facility] for full 6 weeks of vancomycin and ceftaroline. Dr. Day recommends weekly CBC, C-reactive protein, comprehensive metabolic panel, and vancomycin trough level. The patient states he had a good weekend and is feeling better. His is in the room with him and I did answer all of her and his questions. He had no more complaints of heartburn or indigestion. OBJECTIVE: VITAL SIGNS: Today, reveal blood pressure 117/56, pulse 71 to 76, respirations 18 to 20, O2 saturation 91% to 97% on 2 to 3 L nasal cannula, and T-max 99.6. GENERAL: This is a well-developed, well-nourished, slightly obese white male, in no apparent distress at this time. HEENT: Normocephalic and nontraumatic cranium. Pupils are equally round and reactive. Extraocular movements are intact. Nose and throat are slightly dry. NECK: Supple without masses, nodes, or bruits. CHEST: Clear to auscultation. No rales, no rhonchi, no wheezes are heard. HEART: Reveals a regular rate and rhythm without murmurs, gallops, or rubs. ABDOMEN: Obese, soft, and nontender without organomegaly. Normal bowel sounds are noted in all 4 quadrants. No rebound or guarding is noted. : Deferred. EXTREMITIES: Reveal no clubbing or cyanosis. The patient continues with 1 to 2+ edema at his baseline. MUSCULOSKELETAL: His cervical neck area reveals significant improvement in pain. He wears a C-collar p.r.n. ASSESSMENT: 1. Sepsis secondary to epidural abscess. 2. Epidural abscess followed by Dr. Day, Dr. Amaro, on IV antibiotics until June 26. 3. 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 Chun. 4. Pacemaker followed by Dr. Ritchie and Dr. Gorman. 5. Diabetes type 2. 6. Hypertension. 7. Hyperlipidemia. 8. 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 Bright. 9. Melanoma followed by Dr. Bright. 10. Hypothyroidism. 11. Pacemaker. 12. Thrombocytopenia. 13. Elevated troponin in the recent past. 14. Pain management. 15. Generalized weakness. PLAN: 1. The patient will continue vancomycin and had to be adjusted 1 g daily until June 26. 2. The patient will continue ceftaroline 400 mg b.i.d. until May 27. 3. Follow up with Dr. Day in 2 to 3 weeks, it should be around May 28. 4. Continue CBC, C-reactive protein, vancomycin, pre-albumin every week and send to Dr. Day. 5. Continue to monitor the patient's blood counts for thrombocytopenia and anemia. 6. Continue to monitor the patient's troponin if he develops any chest pain. 7. Stress ulcer prophylaxis. 8. Decubitus precautions. 9. DVT prophylaxis. 10. Physical therapy and occupational therapy. Job ID: [id number]
[2020-05-12] MEDS: Acetaminophen 325 MG TAB PO PRN (20:14)
[2020-05-12] MEDS: Aspirin 81 mg Enteric Coated Tablet PO SCH (20:14)
[2020-05-12] MEDS ORDERED: Furosemide 40 MG/4 ML VIAL SLOW IVP SCH (21:00)
--- NOTE | 2020-05-12 21:12 | RAD ---
EXAM: CHEST ONE VIEW HISTORY: Shortness of breath. COMPARISON: 05/06/2020 FINDINGS: Right-sided PICC line and dual-lead left subclavian pacemaker device remain in place. Median sternoto my wires are again seen. Cardiac silhouette is stable in size. There are increased interstitial opacities seen bilaterally. No other interval change. IMPRESSION: Persistent bilateral interstitial and mild patchy opacities greater in the upper lung zones, intersti tial densities at each lung base have increased. Findings may be related to infectious process. Follow-up to resolution is recommended.
[2020-05-12 21:47] LABS: Vancomycin, Trough 22.4 ug/mL
[2020-05-12] MEDS: Vancomycin HCl 750 MG in Sodium Chloride 0.9% 250 ML 250 ML IVPB SCH (22:14)
[2020-05-12] MEDS ORDERED: Vancomycin HCl 1 GM in Sodium Chloride 0.9% 250 ML 250 ML IVPB SCH (23:00)
[2020-05-13] MEDS ORDERED: Sodium Chloride 0.9% 10 ML ONE (01:36)
[2020-05-13] MEDS: Levothyroxine Sodium 75 MCG TAB PO SCH (05:25)
[2020-05-13] MEDS: HumaLOG 300 UNITS/3 ML VIAL SC PRN ×2 (05:25→13:20)
[2020-05-13 05:35] LABS: #Lymphocytes 0.4 thou/uL (1.20-3.40); #Monocytes 0.1 thou/uL (0.11-0.59); #Neutrophils 5.4 thou/uL (1.40-6.50); %Basophils 0.4 % (0.0-1.0); %Lymphocytes 5.9 % (21.0-51.0); %Monocytes 2.2 % (0.0-10.0); %Neutrophils 91.5 % (42.0-75.0); Hemoglobin 7.7 g/dL (14.0-18.0); Mean Corpuscular HGB CONC 29.9 g/dL (32.0-36.0); Mean Corpuscular Hemoglobin 25.6 pg (27.0-31.0); Mean Corpuscular Volume 85.7 fL (78.0-98.0); Mean Platelet Volume 9.3 fL (7.4-10.4); Platelet Count 186 thou/uL (130-400); RBC Distribution Width 18.1 % (11.5-14.5); Red Blood Cell (RBC) Count 3.01 mill/uL (4.70-6.10); White Blood Cell (WBC) Count 5.9 thou/uL (4.8-10.8)
[2020-05-13 05:46] LABS: Lactic Acid 1.1 mmol/L (0.5-2.2)
[2020-05-13 05:50] LABS: ALT (SGPT) 24 U/L (8-55); AST (SGOT) 74 U/L (5-34); Alkaline Phosphatase 163 U/L (40-110); Anion Gap 15 mmol/L (10-20); BUN (Urea Nitrogen) 41 mg/dL (8.4-25.7); Bilirubin, Total 0.4 mg/dL (0.2-1.2); Calc. Creatinine Clearance 43 mL/min (70-130); Calcium 7.9 mg/dL (7.8-10.44); Carbon Dioxide 19 mmol/L (23-31); Chloride 105 mmol/L (98-107); Estimated GFR-MDRD 38; Globulin 2.9 g/dL (2.4-3.5); Glucose 258 mg/dL (83-110); Potassium 3.6 mmol/L (3.5-5.1); Protein, Total 4.9 g/dL (5.8-8.1); Sodium 135 mmol/L (136-145)
[2020-05-13] MEDS: Clopidogrel Bisulfate 75 MG TAB PO SCH (08:15)
[2020-05-13] MEDS: Pramipexole Di-HCl 0.25 MG TAB PO SCH (08:15)
[2020-05-13] MEDS: Famotidine 20 MG TAB PO SCH (08:15)
[2020-05-13] MEDS: Multivitamin W/ Minerals 1 TAB PO SCH (08:15)
[2020-05-13] MEDS: Alogliptin 25 MG TAB PO SCH (08:16)
[2020-05-13] MEDS: Furosemide 40 MG TAB PO SCH (08:16)
[2020-05-13] MEDS: Atorvastatin Calcium 20 MG TAB PO SCH (08:16)
[2020-05-13] MEDS: Potassium Chloride 10 MEQ TAB PO SCH (08:16)
[2020-05-13] MEDS: Spironolactone 25 MG TAB PO SCH (08:16)
[2020-05-13] MEDS: Calcitriol 0.25 MCG CAP PO SCH (08:16)
[2020-05-13] MEDS: Allopurinol 100 MG TAB PO SCH (08:17)
[2020-05-13] MEDS: Lantus 1000 UNITS/10 ML VIAL SC SCH (08:17)
[2020-05-13] MEDS: predniSONE 20 MG TAB PO SCH (08:17)
--- NOTE | 2020-05-13 11:42 | RAD ---
PORTABLE CHEST: Date: 05/13/2020 Time: 1123 hours HISTORY: Low oxygen saturation. COMPARISON: Previous day. FINDINGS/IMPRESSION: No significant interval change is seen since the previous day's exam at 0859 hours. POS: QUINTEN
[2020-05-13 12:02] VITALS: BMI 28.4
[2020-05-13] MEDS: Acetaminophen 325 MG TAB PO PRN ×2 (13:07→17:51)
[2020-05-13] MEDS ORDERED: Metoprolol Tartrate 25 MG TAB PO SCH (14:45)
[2020-05-13 18:11] VITALS: BP 116/56; TEMP 102
[2020-05-13] MEDS ORDERED: Metoprolol Tartrate 50 MG TAB PO SCH (21:00)
--- NOTE | 2020-05-14 08:50 | DIS ---
DATE OF ADMISSION: 05/07/2020 DATE OF DISCHARGE: 05/13/2020 HISTORY: Mr. Ramirez is a well-developed, well-nourished 85-year-old white male, who developed severe neck pain, presented to the emergency room in [place], was given a shot of morphine and Tylenol, was sent home. His pain over the next 24 hours got significantly worse and he called the ambulance because he was unable to move with his pain. He was brought to [facility], where a CT scan revealed spinal cord compression and an epidural abscess. It went from the bottom of the skull down to theC3. He was admitted to [facility], seen in consultation by Dr. Day, Dr. Arguello, and Dr. Amaro. He was felt to be nonoperative and he was started on IV antibiotics. He has now been stabilized and transferred to [facility] for full 6 weeks of vancomycin and ceftaroline. The patient has actually been at [facility] for 5 days. Last night, the patient started having a little shortness of breath and coughing. Chest x- ray reveals some interstitial fluid, and so therefore, he was given some Lasix and nebulizer treatment and actually did very well. His oxygen saturation went from 88 to 90 up to 97%. He slept pretty well over the evening. This morning, he had a low-grade temperature when I saw him, but states he felt a lot better. Midmorning, the patient began to have fever and to have some shaking chills. We repeated his lab work and a lactic acid, which were pretty normal. His lactic acid this morning was 1.1. His white count was 5900 with a hemoglobin of 7.7, hematocrit of 25.8 , and platelet count of 186,000. He had began to have somewhat of a shift, 91.5 neutrophils. Sodium is 135, potassium is 3.6, BUN is 41, and creatinine is 1.72. BNP was 192. BNP has actually been much higher than that up to the 1689 range. We watched the patient during the day and his O2 sats slowly went down. He had to be increased to 3 L of nasal face mask. The decision was made since we have no respiratory therapy here to help watch over the evening, most likely he would benefit from a significantly higher level care hospital. Decision was made to transfer the patient back to [facility] since he has only been here for 5 days. After significant discussion with Dr. Mejia, we felt like because he had some COVID-like symptoms, we most likely needed to do a COVID sampling and so he would have to move to a COVID bed. Initially since he came from telemetry, we thought we might put him back on telemetry, but there was no COVID telemetry beds and there were none done, no COVID telemetry beds at [facility]. [facility] in the [place] was contacted and they had no COVID telemetry beds. After further discussion, it was felt that the patient would probably do very well at [facility] medical [facility], so orders were given to transfer to [facility] in [place] on [facility] medical bed. Vital signs today reveal blood pressure of 116/56, pulse 70 to 90, respirations 18 to 24 and the 24 started happening about 1 o'clock this afternoon, O2 sat on 2 L this morning was 93, on 3 L this afternoon was 85 to 90. T-max was a 102 at 05: 30 today. The patient is being transferred. MEDICATIONS: Medication list has been reviewed and sent with the Patient. PHYSICAL EXAMINATION: This morning, GENERAL: This was a well-developed, well-nourished, white male, who states he did not rest well last night, did not sleep well. HEENT: Normocephalic and nontraumatic cranium. Pupils were equally round and reactive. Extraocular movements were intact. Nose and throat were somewhat dry. NECK: Supple without masses, nodes or bruits. CHEST: Some coarse breath sounds, but no significant cough was noted. No rales. No rhonchi. No wheezes were heard. HEART: Regular rate and rhythm. Pacemaker seemed to be functioning well, not red or irritated. ABDOMEN: Obese, soft, and nontender. Normal bowel sounds were noted in all 4 quadrants. No rebound or guarding was noted. : Deferred. EXTREMITIES: The patient continues to have 1 to 2+ edema in his bases. Last evening, the patient did get an extra dose of Lasix 40 and a nebulizer which helped his breathing significantly. Cervical neck revealed the patient states he does not feel any worse and has been actually somewhat better. ASSESSMENT: 1. Sepsis secondary to epidural abscess. 2. Epidural abscess, followed by Dr. Day and Dr. Amaro, on IV antibiotics of vancomycin and the other antibiotic is ceftaroline 400 mg b.i.d. IV piggyback. 3. Increasing respiratory oxygen needs. 4. Diabetes type 2, slightly elevated over the last 2 days. 5. Hypertension. 6. Recent history of idiopathic hepatitis secondary to melanoma medication, presently weaned from 80 mg of prednisone down to 20 mg. 7. Hypothyroidism. 8. Pacemaker. 9. Thrombocytopenia. 10. Anemia. 11. History of elevated troponin while at [place]. 12. Pain management. 13. Generalized weakness. PLAN: 1. The patient is having some increased respiratory embarrassment, and since he needs a higher level of care, we will transfer him to [facility] medical bed so that he could be tested. He has been here for 5 days, there has been no COVID patients at [facility]. If he had an exposure, it would have to be from [facility] or from the ambulance transfer. 2. I did discuss his case with Dr. Mejia. 3. Dr. Day will also be asked to see the patient in consultation. I did spend over 45 minutes in the preparation and transfer and discharge of this patient. Job ID: [id number] [facility]
== END 2020-05-13 20:23 | disposition short-term general hospital (02) | DRG 871 ==
LOC: NAV ACUTE 16:10
PROVIDERS: ADMIT Family Medicine; ATTEND Family Medicine
DX: A41.9 Sepsis, unspecified organism (principal); G06.2 Extradural and subdural abscess, unspecified; L97.819 Non-pressure chronic ulcer of other part of right lower leg with unspecified severity; E03.9 Hypothyroidism, unspecified; D69.6 Thrombocytopenia, unspecified; E78.5 Hyperlipidemia, unspecified; I25.10 Atherosclerotic heart disease of native coronary artery without angina pectoris; G62.9 Polyneuropathy, unspecified; E11.22 Type 2 diabetes mellitus with diabetic chronic kidney disease; I12.9 Hypertensive chronic kidney disease with stage 1 through stage 4 chronic kidney disease, or unspecified chronic kidney disease; E11.40 Type 2 diabetes mellitus with diabetic neuropathy, unspecified; N18.3 Chronic kidney disease, stage 3 (moderate); D63.1 Anemia in chronic kidney disease; K59.00 Constipation, unspecified; Z85.820 Personal history of malignant melanoma of skin; Z95.0 Presence of cardiac pacemaker; I25.2 Old myocardial infarction; Z79.4 Long term (current) use of insulin
CPT/HCPCS: 36415; 36416; 71045; 80053; 80202; 83605; 83880; 85025; 87040; 87070; 87205; 94640; 97602; J0712; J1815; J1940; J3370; J3490; J7050; J7512; J7620